=== PATIENT | male | born 1960 | race Caucasian/White ===

== ENCOUNTER 2021-05-07 13:37 | Inpatient (IN) ==
[2021-05-07 14:58] LABS: Basophils % 0.4 %; Hematocrit 44.2 % (37.5-50.1); Hemoglobin 15.3 g/dL (12.9-16.9); Lymphocytes % 23.6 %; Mean Corpuscular HGB Conc 34.6 g/dL (31.6-35.5); Mean Corpuscular Volume 89.7 fL (83.0-100.0); Mean Platelet Volume 11.6 fL (9.4-12.4); Monocytes # 0.2 K/mcL (0.0-1.3); Monocytes % 8.2 %; Neutrophils # 1.6 K/mcL (1.6-8.9); Red Blood Count 4.93 M/mcL (4.19-5.50); Red Cell Distribution Width 11.9 % (11.5-14.5); Segmented Neutrophils % 67.8 %; White Blood Count 2.3 K/mcL (4.3-11.1)
[2021-05-07 15:03] LABS: Lymphocytes # 0.5 K/mcL (0.6-4.6); Platelet Count 88 K/mcL (140-400)
[2021-05-07 15:16] LABS: Alanine Aminotransferase 91 Units/L (7-52); Albumin 3.6 g/dL (3.5-5.7); Albumin/Globulin Ratio 1.1 (1.1-2.2); Alkaline Phosphatase 40 Units/L (34-104); Aspartate Amino Transferase 147 Units/L (13-39); BUN/Creatinine Ratio 11 (6-26); Bilirubin,Total 0.6 mg/dL (0.3-1.0); Blood Urea Nitrogen 9 mg/dL (6-20); Calcium 8.1 mg/dL (8.6-10.3); Carbon Dioxide 30 mEq/L (23-29); Chloride 96 mEq/L (98-107); Globulin 3.4 g/dL (2.4-3.5); Glucose 102 mg/dL (70-105); Osmolality,Calculated 277 (280-300); Potassium 3.6 mEq/L (3.5-5.1); Sodium 134 mEq/L (136-145); eGFR For African Americans > 60 (> 60); eGFR For Non-African Americans > 60 (> 60)
[2021-05-07 15:19] LABS: Troponin I < 0.03 ng/mL (< 0.04)
[2021-05-07 15:25] LABS: VBG HCO3 29 mEq/L (21-27); VBG PCO2 51 mmHg (41-51); VBG PH 7.37 pH Units (7.32-7.42); VBG PO2 31 mmHg (25-50)
[2021-05-07 15:39] LABS: Platelet Estimate Decreased (Normal); Reactive Lymphocytes Present (Not Present)
[2021-05-07] MEDS ORDERED: Naloxone 0.4 MG/ML INJ IVP PRN (17:02)
[2021-05-07] MEDS ORDERED: Acetaminophen 325 MG TABLET PO PRN (17:02)
[2021-05-07] MEDS ORDERED: Ondansetron ODT 4 MG TAB.RAPDIS SL PRN (17:02)
[2021-05-07] MEDS ORDERED: Melatonin 3 MG TABLET PO PRN (17:02)
[2021-05-07] MEDS ORDERED: MOM Conc 10 ML UD.LIQ PO PRN (17:02)
[2021-05-07] MEDS ORDERED: Ibuprofen 400 MG TABLET PO PRN (17:02)
[2021-05-07] MEDS ORDERED: Ondansetron 4 MG/2 ML VIAL IVP PRN (17:02)
[2021-05-07] MEDS ORDERED: Mag Hydrox/Al Hydrox/Simeth 30 ML UDC PO PRN (17:02)
[2021-05-07] MEDS ORDERED: Remdesivir 200 MG in 0.9 % Sodium Chloride 100 ML IVPB ONE (17:08)
[2021-05-07] MEDS ORDERED: Isovue-370 500 ML BOTTLE IVP ONE (17:13)
[2021-05-07] MEDS: levoFLOXacin 750 MG/150 ML 750 MG/150 ML BAG IVPB SCH (18:11)
[2021-05-08] MEDS: Ipratropium 1 PUFF INHALER IH SCH ×5 (04:01→15:58)
[2021-05-08 05:58] LABS: Hematocrit 43.1 % (37.5-50.1); Hemoglobin 15.1 g/dL (12.9-16.9); Immature Granulocytes % 0.4 % (0-4); Lymphocytes # 0.3 K/mcL (0.6-4.6); Lymphocytes % 12.3 %; Mean Corpuscular Hemoglobin 31.5 pg (28.0-33.3); Mean Platelet Volume 11.7 fL (9.4-12.4); Monocytes # 0.3 K/mcL (0.0-1.3); Monocytes % 11.5 %; Red Blood Count 4.79 M/mcL (4.19-5.50); Red Cell Distribution Width 11.8 % (11.5-14.5); Segmented Neutrophils % 75.8 %; White Blood Count 2.7 K/mcL (4.3-11.1)
[2021-05-08 05:59] LABS: Neutrophils # 2.1 K/mcL (1.6-8.9); Platelet Count 90 K/mcL (140-400)
[2021-05-08] MEDS ORDERED: *HR* Enoxaparin 40 MG/0.4 ML SYRINGE SQ SCH (06:00)
[2021-05-08 06:04] LABS: INR 1.3; Prothrombin Time 14.6 Seconds (9.4-12.1)
[2021-05-08 06:07] LABS: Activated Partial Thrombo Time 31.1 Seconds (26.0-36.0)
[2021-05-08 06:15] LABS: Alanine Aminotransferase 95 Units/L (7-52); Albumin 3.4 g/dL (3.5-5.7); Alkaline Phosphatase 38 Units/L (34-104); Aspartate Amino Transferase 135 Units/L (13-39); BUN/Creatinine Ratio 13 (6-26); Bilirubin,Direct 0.2 mg/dL (0.0-0.2); Bilirubin,Indirect 0.4 mg/dL (0.0-1.0); Bilirubin,Total 0.6 mg/dL (0.3-1.0); Blood Urea Nitrogen 10 mg/dL (6-20); Calcium 8.3 mg/dL (8.6-10.3); Carbon Dioxide 28 mEq/L (23-29); Chloride 92 mEq/L (98-107); Globulin 3.4 g/dL (2.4-3.5); Glucose 122 mg/dL (70-105); Osmolality,Calculated 264 (280-300); Potassium 3.4 mEq/L (3.5-5.1); Sodium 127 mEq/L (136-145); Total Protein 6.8 g/dL (6.4-8.9); eGFR For African Americans > 60 (> 60); eGFR For Non-African Americans > 60 (> 60)
[2021-05-08] MEDS: levoFLOXacin 750 MG/150 ML 750 MG/150 ML BAG IVPB SCH (08:50)
[2021-05-08] MEDS ORDERED: Dexamethasone Sodium Phos/PF 10 MG/ML VIAL IVP SCH (09:00)
[2021-05-08] MEDS ORDERED: Dexamethasone Sodium Phos/PF 10 MG/ML VIAL IVP ONE (10:02)
[2021-05-08] MEDS ORDERED: Furosemide 20 MG/2 ML VIAL IVP ONE (14:05)
[2021-05-08 14:25] LABS: C-Reactive Protein 35 mg/L (Less than 10)
[2021-05-08 14:40] LABS: Ferritin > 1500 ng/mL (20-250)
[2021-05-08 16:36] VITALS: BP 100/67; PULSE 90; RESP 18; TEMP 97.2; O2SAT 92
[2021-05-08] MEDS ORDERED: Remdesivir 100 MG in 0.9 % Sodium Chloride 100 ML IVPB SCH (18:00)
[2021-05-09] MEDS ORDERED: Dexamethasone Sodium Phos/PF 10 MG/ML VIAL IVP SCH (09:00)
== END 2021-05-08 18:10 | disposition short-term general hospital (02) | DRG 177 ==
LOC: INPGRE 13:37 → EMEROOGRE 13:37 → INPGRE 17:18
PROVIDERS: ADMIT Family Medicine; ATTEND Family Medicine